=== PATIENT | male | born 1975 | race Caucasian/White ===

== ENCOUNTER 2018-10-10 14:32 | Emergency (ER) | payer OTHER ==
[2018-10-10 15:46] VITALS: BP 157/97
--- NOTE | 2018-10-10 15:54 | UC ---
General HPI - HPI Summary HPI Summary: pt is c/o having headaches on and off for about 1 week. the headaches occur with exertion and resolved with rest plus Aleve or Motrin. the headaches are throbbing and frontal. pt attributes the headaches to his BP going up. he has a hx of htn but hasn't taken medication in [address] Mcmahon who would see him in am but they no longer take his insurance. he has had no visual disturbances, changes in speech, cp/sob or focal numbness/ weakness. he has no FMH CVA/aneurysm. his notes pt having increased thirst and urination for past few months whic pt confirms. Pt fell through a plastic deck and scratched his RLE. He was able to confirm his last tetanus to be within 10 years. 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 Pain Intensity: 4 - Allergy/Home Medications Allergies/Adverse Reactions: Allergies Allergy/AdvReac Type Severity Reaction Status Date / Time No Known Allergies Allergy Verified 10/10/18 15:38 Home Medications: Home Medications Naproxen Sodium [Aleve] 440 mg PO PRN 10/10/18 [History] PMH/Surg Hx/FS Hx/Imm Hx Cardiovascular History: Hypertension - Surgical History Surgical History: Yes Surgery Procedure, Year, and Place: carpal tunnel right 2010 - Family History Known Family History: Positive: Other - IBD - Social History Occupation: Employed Full-time Lives: With Family Alcohol Use: None Substance Use Type: None Smoking Status (MU): Never Smoked Tobacco - Immunization History Hx Tetanus, Diphtheria Vaccination: Yes Review of Systems All Other Systems Reviewed And Are Negative: Yes Eyes: Negative: Blurred Vision, Diplopia Respiratory: Negative: Shortness Of Breath Cardiovascular: Negative: Palpitations, Chest Pain Genitourinary: Positive: Urgency Neurological: Positive: Headache. Negative: Weakness, Paresthesia, Numbness Physical Exam Triage Information Reviewed: Yes Appearance: Well-Appearing Vital Signs: Initial Vital Signs Temp 98.3 F 10/10/18 15:39 Pulse 92 10/10/18 15:39 Resp 20 10/10/18 15:39 BP 157/97 10/10/18 15:39 Pulse Ox 95 10/10/18 15:39 Vital Signs Reviewed: Yes Eyes: Positive: Other: - PERRL, EOMI. No edema on fundoscopic exam. ENT: Positive: Pharynx normal, TMs normal. Negative: Nasal congestion, Nasal drainage Neck: Positive: Supple, Nontender, No Lymphadenopathy, Other: - no carotid bruits Respiratory: Positive: Lungs clear, Normal breath sounds, No respiratory distress Cardiovascular: Positive: RRR, No Murmur, Pulses Normal, Other: - BP at time of eczk=517/98 Abdomen Description: Positive: Nontender, No Organomegaly, Soft. Negative: Pulsatile Mass Bowel Sounds: Positive: Present Musculoskeletal: Positive: ROM Intact, No Edema Neurological: Positive: Other: - A&Ox3. CN 2-12 grossly intact. Steady gait. s/v /m intact x4. Psychological: Positive: Normal Response To Family, Age Appropriate Behavior Skin Exam: Normal Diagnostics - Laboratory Lab Results: LIPIDS TO HIGH FOR GLUCOMETER TO READ SUGAR. U/A=2+ SUGAR, TRACE KETONES, TRACE BLOOD. Course/Dx - Course Course Of Treatment: GIVEN PT'S HX, PE AND RESULTS OF DIAGNOSTICS HERE, ER TRANSFER ADVISED; HOWEVER , PT IS REFUSING TO GO. HE IS A&OX3 AND IS ABLE TO MAKE DECISIONS THUS I MUST RESPECT HIS WISH TO REFUSE THE ER TRANSFER. HE WILL BE LEAVING [place]. HE HAS NO PCP THUS I WILL REFER TO [facility]. - Diagnoses Provider Diagnosis: Left against medical advice, Hypertensive urgency, Hyperglycemia, Hyperlipidemia, Headache Discharge - Sign-Out/Discharge Documenting (check all that apply): Patient Departure All imaging exams completed and their final reports reviewed: No Studies - Discharge Plan Condition: Stable Disposition: AGAINST MEDICAL ADVICE Patient Education Materials: Against Medical Advice (ED) Referrals: [facility] [Outside] - 1 Day - Billing Disposition and Condition Condition: STABLE Disposition: Against Medical Advice
== END 2018-10-10 17:13 | disposition left against medical advice (07) ==
LOC: UCCORT 14:32
DX: Z53.21 Procedure and treatment not carried out due to patient leaving prior to being seen by health care provider (principal); I16.0 Hypertensive urgency; R73.9 Hyperglycemia, unspecified; E78.5 Hyperlipidemia, unspecified; I10 Essential (primary) hypertension
CPT/HCPCS: 81003; 99202; G0463

== ENCOUNTER 2018-12-24 11:39 | Emergency (ER) | payer BC, OTHER ==
[2018-12-24 12:10] VITALS: BP 141/87
--- NOTE | 2018-12-24 12:32 | UC ---
Skin Complaint HPI - HPI Summary HPI Summary: COUPLE DAYS AGO PT CUT DOWN TREE AND CAME INTO CONTACT W/ POISON SUMAC. TRIED OTC ZANFEL CREAM/PASTE W/ NO RELIEF. BROKE OUT IN BUMPY/BLISTERY RASH. ALSO TRIED BENADRYL LAST NIGHT W/ NO RELIEF. [ End ] - History of Current Complaint Chief Complaint: UCSkin Time Seen by Provider: 12/24/18 12:04 Stated Complaint: SKIN COMPLAINT Hx Obtained From: Patient Onset/Duration: Sudden Onset, Lasting Days Skin Exposure Onset/Duration: Days Ago Timing: Constant Onset Severity: Mild Current Severity: Moderate Pain Intensity: 0 Character: Swelling, Pruritus, Redness, Raised Aggravating Factor(s): Clothing, Humidity, Touch Alleviating Factor(s): Nothing Associated Signs & Symptoms: Positive: Rash Related History: Possible Reaction to: Environmental Exposure - Allergy/Home Medications Allergies/Adverse Reactions: Allergies Allergy/AdvReac Type Severity Reaction Status Date / Time No Known Allergies Allergy Verified 12/24/18 12:05 Home Medications: Home Medications Lisinopril TAB* [Prinivil TAB*] 10 mg PO DAILY 12/24/18 [History Confirmed 12/24] metFORMIN* [Glucophage 500 MG TAB *] 1 tab BID 12/24/18 [History Confirmed 12/24] PMH/Surg Hx/FS Hx/Imm Hx Previously Healthy: Yes - Surgical History Surgical History: Yes Surgery Procedure, Year, and Place: carpal tunnel right 2010 - Family History Known Family History: Positive: Other - IBD - Social History Alcohol Use: None Substance Use Type: None Smoking Status (MU): Never Smoked Tobacco - Immunization History Hx Tetanus, Diphtheria Vaccination: Yes Review of Systems All Other Systems Reviewed And Are Negative: Yes Skin: Positive: Rash Is Patient Immunocompromised?: No Physical Exam Triage Information Reviewed: Yes Appearance: Well-Appearing, Well-Nourished, Pain Distress Vital Signs: Initial Vital Signs Temp 97.9 F 12/24/18 12:06 Pulse 76 12/24/18 12:06 Resp 20 12/24/18 12:06 BP 141/87 12/24/18 12:06 Pulse Ox 96 12/24/18 12:06 Vital Signs Reviewed: Yes Eye Exam: Normal ENT Exam: Normal Dental Exam: Normal Neck exam: Normal Respiratory Exam: Normal Cardiovascular Exam: Normal Abdominal Exam: Normal Abdomen Description: Positive: Nontender, No Organomegaly, Soft Bowel Sounds: Positive: Present Musculoskeletal Exam: Normal Neurological Exam: Normal Psychological Exam: Normal Skin: Positive: Rashes - mostly on arms and neck, some on the left ankle Course/Dx - Course Course Of Treatment: hx obtained, exam performed ,meds reviewed, treated for reaction to poison sumac - Differential Diagnoses - Skin Complaint Differential Diagnoses: Cellulitis, Poison Rianna, Poison [place], Urticaria - Diagnoses Provider Diagnosis: Contact dermatitis Discharge - Sign-Out/Discharge Documenting (check all that apply): Patient Departure All imaging exams completed and their final reports reviewed: No Studies - Discharge Plan Condition: Stable Disposition: HOME Prescriptions: predniSONE [Prednisone 20 MG TAB] 20 mg PO DAILY #18 tablet Patient Education Materials: Contact Dermatitis (ED) Referrals: Doug Bowman MD [Primary Care Provider] - Additional Instructions: 1. take the prednisone as prescribed. 2. Cold compresses, and baking soda and water paste also help with the itching. 3. FOllow up if not improving in the next week. - Billing Disposition and Condition Condition: STABLE Disposition: Home
== END 2018-12-24 12:52 | disposition home or self-care (01) ==
LOC: UCCORT 11:39
DX: L25.5 Unspecified contact dermatitis due to plants, except food (principal)
CPT/HCPCS: 99212; G0463

== ENCOUNTER 2019-03-31 14:42 | Emergency (ER) | payer BC ==
--- OUTSIDE RECORDS SUMMARY | 2019-03-31 15:38 | XMS REPORT | Continuity of Care Document ---
:1975 External Reference #:[id number] Author Name Doug Bowman MD (transmitted by agent of provider Cori Lott) Address [address] [place] [address] Care Team Providers Name Role Phone Harpreet Herrera MD - Internal Care Team Information [facility] Doug Bowman MD - Hospitalist Care Team Information [facility] [phone] Problems Active Problems Provider Date Backache Onset: 05/31/2012 Disorder of lumbar disc Onset: 05/31/2012 Essential hypertension Onset: 05/31/2012 Carpal tunnel syndrome Onset: 05/31/2012 Anxiety state Onset: 05/31/2012 Depressive disorder Onset: 06/10/2011 Insomnia Onset: 06/10/2011 Elevated blood-pressure reading without diagnosis of Onset: 06/10/2011 hypertension Malaise and fatigue Doug Bowman MD Onset: 11/14/2018 Type II diabetes mellitus uncontrolled Doug Bowman MD Onset: 10/12/2018 Idiopathic gout, unspecified site Doug Bowman MD Onset: 10/12/2018 Adult health examination Doug Bowman MD Onset: 10/12/2018 Glycosuria Doug Bowman MD Onset: 10/12/2018 Hyperlipidemia Doug Bowman MD Onset: 10/12/2018 Social History Type Date Description Comments Sex Unknown ETOH Use Never used alcohol Tobacco Use Start: Unknown Patient has never smoked Recreational Drug Use Denies Drug Use Smoking Status Reviewed: 02/14/19 Patient has never smoked Allergies, Adverse Reactions, Alerts Description No Known Drug Allergies Medications Active Medications SIG Qnty Indications Ordering Date Provider Freestyle Lite Blood Use daily to 1units E11.65 Doug Bowman MD 11/14/2018 Glucose Monitoring check blood sugar System for diabetes Device mellitus Lancets Super Thin 2 times daily and 100units E11.65 Doug Bowman MD 2018 28G as needed Thin 28G [facility] Blood Glucose Test use twice daily 100units E11.65 Doug Bowman MD 2018 to check blood Strips glucose for diabetes mellitus Lisinopril-Hydrochlo 1 by mouth every 30tabs I10 Doug Bowman MD 10/12/2018 rothiazide day 10-12.5mg Tablets Metformin HCL 2 tabs twice a 120tabs E11.65 Doug Bowman MD 10/12/2018 500mg day. Tablets Tylenol 8 Hour take one tab by Unknown 650mg mouth every 4 Tablets ER hours Ibuprofen 200 400-600mg every 6 Unknown 200mg hours as needed Tablets for pain. Aleve Unknown 220mg Tablets Immunizations CPT Code Status Date Vaccine Lot # [id number] Given 01/27/2011 Tdap - Tetanus/Diptheria/Acellular Pertussis Vital Signs Date Vital Result Comment 02/14/2019 2:38pm Height 68 inches 5'8" Weight 232.00 lb Heart Rate 76 /min BP Systolic 137 mmHg BP Diastolic 87 mmHg O2 % BldC Oximetry 98 % BMI (Body Mass Index) 35.3 kg/m2 11/14/2018 1:49pm Height 68 inches 5'8" Weight 234.25 lb Heart Rate 81 /min BP Systolic 103 mmHg BP Diastolic 72 mmHg Body Temperature 98.5 F O2 % BldC Oximetry 94 % BMI (Body Mass Index) 35.6 kg/m2 Results Test Date Facility Test Result H/L Range Note Laboratory test 10/12/2018 [facility] Hemoglobin A1c 9.0 % High 4.0-5.[address] (Glyco HGB) [place] [address] [phone] Comp Metabolic 10/12/2018 [facility] Sodium 136 mmol/L Normal 135-[address] [place] [address] [phone] Potassium 3.8 mmol/L Normal 3.5-5.0 Chloride 104 mmol/L Normal 101-111 Co2 Carbon Dioxide 26 mmol/L Normal 22-32 Anion Gap 6 mmol/L Normal 2-11 Glucose 217 mg/dL High 70-100 Blood Urea Nitrogen 20 mg/dL Normal 6-24 Creatinine 0.90 mg/dL Normal 0.67-1.17 BUN/Creatinine Ratio 22.2 High 8-20 Calcium 9.1 mg/dL Normal 8.6-10.3 Total Protein 6.8 g/dL Normal 6.4-8.9 Albumin 4.4 g/dL Normal 3.2-5.2 Globulin 2.4 g/dL Normal 2-4 Albumin/Globulin Ratio 1.8 Normal 1-3 Total Bilirubin 0.90 mg/dL Normal 0.2-1.0 Alkaline Phosphatase 60 U/L Normal 34-104 Alt 78 U/L High 7-52 Ast 47 U/L High 13-39 Egfr Non- 91.3 >60 Egfr 110.4 >60 2 Lipid Profile 10/12/2018 [facility] Triglycerides 160 mg/dL 3 (Trig/Chol/HDL) [address] [place] [address] [phone] Cholesterol 136 mg/dL 4 HDL Cholesterol 33.5 mg/dL 5 LDL Cholesterol 71 mg/dL 6 CBC Auto 10/12/2018 [facility] White Blood 6.6 10^3/uL Normal 3.5-10.[address] [place] [address] [phone] Red Blood Count 5.27 10^6/uL Normal 4.18-5.48 Hemoglobin 16.1 g/dL Normal 14.0-18.0 Hematocrit 46 % Normal 42-52 Mean Corpuscular Volume 87 fL Normal 80-94 Mean Corpuscular Hemoglobin 31 pg Normal 27-31 Mean Corpuscular HGB Conc 35 g/dL Normal 31-36 Red Cell Distribution Width 13 % Normal 10.5-15 Platelet Count 181 10^3/uL Normal 150-450 Mean Platelet Volume 9.0 fL Normal 7.4-10.4 Abs Neutrophils 3.9 10^3/uL Normal 1.5-7.7 Abs Lymphocytes 1.8 10^3/uL Normal 1.0-4.8 Abs Monocytes 0.7 10^3/uL Normal 0-0.8 Abs Eosinophils 0.1 10^3/uL Normal 0-0.6 Abs Basophils 0.1 10^3/uL Normal 0-0.2 Abs Nucleated RBC 0.0 10^3/uL Granulocyte % 59.3 % Lymphocyte % 27.8 % Monocyte % 10.3 % Eosinophil % 1.5 % Basophil % 1.1 % Nucleated Red Blood Cells % 0.1 Laboratory test 10/12/2018 [facility] Uric Acid 4.9 Normal 4.4 -7.[address] mg/[place] [address] [phone] Urine 10/12/2018 [facility] Ur Microalbumin < 15.[address] (mg/L) mg/[place] [address] [phone] Urine Creatinine 178.37 mg/dL Urine Microalbumin/Creatinine TNP <31 7 1 Therapeutic target for the treatment of diabetes mellitus patients is <7% HBA1C, and in selective patients <6.0%. Please refer to [place] [employer] diabetic care guidelines for further information. 2 Because ethnic data is not always readily available, this report includes an eGFR for both -Americans and non- Americans. The National Kidney Disease Education Program (NKDEP) does not endorse the use of the MDRD equation for patients that are not between the ages of 18 and 70, are , have extremes of body size, muscle mass, or nutritional status, or are non- or non-. According to the National Kidney Foundation, irrespective of diagnosis, the stage of the disease is based on the level of kidney function: Stage Description GFR(mL/min/1.73 m(2)) 1 Kidney damage with normal or decreased GFR 90 2 Kidney damage with mild decrease in GFR 60-89 3 Moderate decrease in GFR 30-59 4 Severe decrease in GFR 15-29 5 Kidney failure <15 (or dialysis) 3 Desirable: <150 Borderline High: 150-199 High: 200-499 Very High: >500 4 Desirable: <200 Borderline High: 200-239 High: >239 5 Low: <40 Desirable: 40-60 High: >60 6 Desirable: <100 Near Optimal: 100-129 Borderline High: 130-159 High: 160-189 Very High: >189 7 Unable to calculate due to low microalbumin Procedures Description No Information Available Medical Devices Description No Information Available Encounters Type Date Location Provider Dx Diagnosis Office Visit 11/14/2018 [facility] Doug Bowman MD E11.65 Type 2 diabetes 1:40p Medicine - Suite mellitus with R hyperglycemia I10 Essential (primary) hypertension R53.83 Other fatigue Office Visit 10/12/2018 2:40p DO Not Use Care Doug Bowman I10 Essential ( primary) [facility] E11.65 Type 2 diabetes mellitus with hyperglycemia R81 Glycosuria Z00.00 Encntr for general adult medical exam w/o abnormal findings M10.00 Idiopathic gout, unspecified site E78.5 Hyperlipidemia, unspecified Assessments Date Code Description Provider 02/14/2019 E11.65 Type 2 diabetes mellitus with hyperglycemia Doug Bowman MD 02/14/2019 R53.83 Other fatigue Doug Bowman MD 11/14/2018 E11.65 Type 2 diabetes mellitus with hyperglycemia Doug Bowman MD 11/14/2018 I10 Essential (primary) hypertension Doug Bowman MD 11/14/2018 R53.83 Other fatigue Doug Bowman MD 10/12/2018 I10 Essential (primary) hypertension Doug Bowman MD 10/12/2018 E11.65 Type 2 diabetes mellitus with hyperglycemia Doug Bowman MD 10/12/2018 R81 Glycosuria Doug Bowman MD 10/12/2018 Z00.00 Encounter for general adult medical examination Doug Bowman MD without abno 10/12/2018 M10.00 Idiopathic gout, unspecified site Doug Bowman MD 10/12/2018 E78.5 Hyperlipidemia, unspecified Doug Bowman MD Plan of Treatment Future Appointment(s):08/20/2019 1:40 pm - Doug Bowman MD at [facility] Internal Medicine - [address] - Doug Bowman MDE11.65 Type 2 diabetes mellitus with hyperglycemiaComments:recheck your A1C.Follow up:6 [id number] Other fatigue Functional Status Description No Information Available Mental Status Description No Information Available Referrals Description No Information Available
[2019-03-31 15:45] VITALS: BP 131/83
[2019-03-31] MEDS ORDERED: Lidocaine 1% MPF ** 5 ML VIAL INJ ONE (15:57)
--- NOTE | 2019-03-31 16:34 | UC ---
Skin Complaint HPI - HPI Summary HPI Summary: Pt presents with c/o painful, hard, moveable lumpr in right axilla that began 2 days ago. Pt has hx of MRSA - History of Current Complaint Chief Complaint: UCSkin Time Seen by Provider: 03/31/19 15:47 Stated Complaint: LUMP UNDER RIGHT ARM Hx Obtained From: Patient Onset/Duration: Sudden Onset, Lasting Days, Still Present, Worse Since - onset Skin Exposure Onset/Duration: Days Ago Timing: Constant Onset Severity: Mild Current Severity: Moderate Pain Intensity: 0 Location: Discrete - right axilla Character: Swelling, Redness, Raised, Painful Aggravating Factor(s): Touch Alleviating Factor(s): Nothing Associated Signs & Symptoms: Positive: Tenderness - Allergy/Home Medications Allergies/Adverse Reactions: Allergies Allergy/AdvReac Type Severity Reaction Status Date / Time No Known Allergies Allergy Verified 03/31/19 15:45 PMH/Surg Hx/FS Hx/Imm Hx Previously Healthy: Yes - Surgical History Surgical History: Yes Surgery Procedure, Year, and Place: carpal tunnel right 2010 - Family History Known Family History: Positive: Other - IBD - Social History Occupation: Employed Full-time Lives: With Family Alcohol Use: None Substance Use Type: None Smoking Status (MU): Never Smoked Tobacco Have You Smoked in the Last Year: No - Immunization History Hx Tetanus, Diphtheria Vaccination: Yes Review of Systems All Other Systems Reviewed And Are Negative: Yes Constitutional: Positive: Negative Skin: Positive: Other - painful lumpr right axilla Eyes: Positive: Negative ENT: Positive: Negative Respiratory: Positive: Negative Cardiovascular: Positive: Negative Gastrointestinal: Positive: Negative Genitourinary: Positive: Negative Motor: Positive: Negative Neurovascular: Positive: Negative Musculoskeletal: Positive: Negative Neurological: Positive: Negative Psychological: Positive: Negative Is Patient Immunocompromised?: No Physical Exam Triage Information Reviewed: Yes Appearance: Well-Appearing Vital Signs: Initial Vital Signs Temp 98.4 F 03/31/19 15:42 Pulse 79 03/31/19 15:42 Resp 16 03/31/19 15:42 BP 131/83 03/31/19 15:42 Pulse Ox 96 03/31/19 15:42 Vital Signs Reviewed: Yes Eye Exam: Normal ENT: Positive: Hearing grossly normal Dental Exam: Normal Dental: Positive: Other: - missing several teeth Neck exam: Normal Respiratory: Positive: No respiratory distress Musculoskeletal Exam: Normal Neurological Exam: Normal Psychological Exam: Normal Skin Exam: Other - painful, moveable lump mild erythematous right axilla Procedures - Incision and Drainage Right Axilla Anesthesia: Local Instrument(s): Scalpel - no purulent drainage, pt tolerated well Course/Dx - Differential Diagnoses - Skin Complaint Differential Diagnoses: Abscess, MRSA - Diagnoses Provider Diagnosis: Abscess of right axilla Discharge ED - Sign-Out/Discharge Documenting (check all that apply): Patient Departure All imaging exams completed and their final reports reviewed: No Studies - Discharge Plan Condition: Stable Disposition: HOME Prescriptions: Cephalexin CAP* [Keflex 500 CAP*] 500 mg PO Q6H #28 cap Patient Education Materials: Abscess (ED) Referrals: Doug Bowman MD [Primary Care Provider] - If Needed - Billing Disposition and Condition Condition: STABLE Disposition: Home
== END 2019-03-31 16:34 | disposition home or self-care (01) ==
LOC: UCCORT 14:42
DX: L02.411 Cutaneous abscess of right axilla (principal)
CPT/HCPCS: 10060; 99212; G0463